=== PATIENT | male | born 1955 | race Caucasian/White ===

== ENCOUNTER 2017-02-21 19:08 | Emergency (ER) | payer OTHER ==
[~2017-02-21] VITALS: Ht 188 cm; Wt 85.2 kg
[2017-02-21 19:09] VITALS: BP 177/98
== END 2017-02-21 19:57 | disposition home or self-care (01) ==
LOC: ED 19:45
DX: B02.9 Zoster without complications (principal)
CPT/HCPCS: 99283

== ENCOUNTER → 2017-06-28 | Outpatient (CLI) | payer OTHER | END | disposition home or self-care (01) | LOC: CFH 11:00 | PROVIDERS: ATTEND Internal Medicine Cardiovascular Disease | DX: I08.0 Rheumatic disorders of both mitral and aortic valves (principal); I10 Essential (primary) hypertension | CPT/HCPCS: 93306 ==

== ENCOUNTER 2019-08-05 06:56 | Outpatient (CLI) | payer OTHER | END 2019-08-05 23:59 | disposition home or self-care (01) | LOC: CFH 06:56 | PROVIDERS: ATTEND Internal Medicine Cardiovascular Disease | DX: I08.0 Rheumatic disorders of both mitral and aortic valves (principal) | CPT/HCPCS: 93306 ==